=== PATIENT | male | born 1950 | race Hispanic/Latino ===

== ENCOUNTER → 2017-08-26 | Outpatient (CLI) | payer MEDICARE | END | disposition home or self-care (01) | LOC: GMA 15:00 | PROVIDERS: ATTEND Nurse Practitioner Family | DX: E29.9 Testicular dysfunction, unspecified (principal) ==

== ENCOUNTER → 2017-09-03 | Outpatient (CLI) | payer MEDICARE, OTHER | END | disposition home or self-care (01) | LOC: GMA 16:44 | PROVIDERS: ATTEND Nurse Practitioner Family | DX: E29.9 Testicular dysfunction, unspecified (principal) ==

== ENCOUNTER → 2018-08-18 | Outpatient (CLI) | payer MEDICARE, OTHER ==
--- NOTE | 2018-08-18 11:17 | MRI ---
EXAM DESCRIPTION: Cervical Spine CLINICAL HISTORY: M54.6 COMPARISON: None Available. TECHNIQUE: MRI of the cervical spine is performed according to our usual protocol. FINDINGS: Sagittal T2 images reveal normal signal intensity within the intervertebral discs. Normal T2 appearance of the cervical cord. Posterior discal abnormalities are mild at the C5-6 and C6-7 levels. Sagittal T1 images show benign marrow signal characteristics. C5-6 disc degenerative changes appear most prominent. Normal T1 appearance of the cervical and upper thoracic spinal cord. Normal alignment of the vertebral bodies and facets. Sagittal STIR images are negative for high signal intensity marrow edema within the vertebral bodies or posterior elements. No paraspinous fluid collection or cystic lesion. Axial images were obtained to evaluate the disc levels. C2-3: Normal posterior disc margin with no spinal stenosis or neural foraminal narrowing. Mild facet degenerative changes, right more than left. Normal appearance of the cord at this level. C3-4: Normal posterior disc margin with no spinal stenosis or neural foraminal narrowing. Mild facet degenerative changes. Normal appearance of the cord at this level. C4-5: Normal posterior disc margin with no spinal stenosis or neural foraminal narrowing. Facet degenerative changes are present bilaterally. Normal appearance of the cord at this level. C5-6: Mild diffuse posterior annular bulge without spinal stenosis. There is moderately severe right neural foraminal narrowing related to uncovertebral joint and facet spurring. Moderate facet degenerative changes bilaterally. Normal appearance of the cord at this level. C6-7: Mild posterior disc/osteophyte complex with left paracentral accentuation. No spinal stenosis. There is moderate left and moderately severe right neural foraminal narrowing related to uncovertebral joint and facet spurring. Normal appearance of the cord at this level. C7-T1: Normal posterior disc margin with no spinal stenosis or neural foraminal narrowing. Facets appear normal. Normal appearance of the cord at this level. IMPRESSION: Negative for acute disc herniation or significant spinal stenosis. Uncovertebral joint and facet degenerative changes with neural foraminal narrowing at levels noted above. Electronically signed by: Ochoa Lal MD 08/18/2018 11:15 AM NUCLE[facility] MEDICINE TECH
== END ==
LOC: MRI 10:00
PROVIDERS: ATTEND Family Medicine
DX: M54.6 Pain in thoracic spine (principal)

== ENCOUNTER → 2019-02-16 | Outpatient (CLI) | payer MEDICARE, OTHER | LOC: LAB.O 11:32 | PROVIDERS: ATTEND Family Medicine | DX: M79.7 Fibromyalgia (principal); M25.50 Pain in unspecified joint; R53.82 Chronic fatigue, unspecified; I10 Essential (primary) hypertension; E53.8 Deficiency of other specified B group vitamins ==

== ENCOUNTER → 2019-05-13 | Outpatient (CLI) | payer MEDICARE, OTHER | LOC: GMAL 12:00 | PROVIDERS: ATTEND Family Medicine | DX: R23.3 Spontaneous ecchymoses (principal); R30.0 Dysuria ==

== ENCOUNTER → 2020-02-10 | Outpatient (CLI) | payer MEDICARE, OTHER | LOC: GMAL 14:38 | PROVIDERS: ATTEND Family Medicine | DX: Z79.899 Other long term (current) drug therapy (principal) ==

== ENCOUNTER → 2020-10-17 | Outpatient (CLI) | payer MEDICARE | LOC: LAB.O 14:19 | DX: M35.3 Polymyalgia rheumatica (principal); Z79.899 Other long term (current) drug therapy ==